=== PATIENT | female | born 1990 | race Caucasian/White ===

== ENCOUNTER 2016-09-10 18:52 | Emergency (ER) | payer OTHER | END 2016-09-10 19:30 | disposition left against medical advice (07) | LOC: ER 18:52 | DX: Z53.9 Procedure and treatment not carried out, unspecified reason (principal); M54.9 Dorsalgia, unspecified; M25.559 Pain in unspecified hip ==

== ENCOUNTER 2017-03-13 22:46 | Emergency (ER) | payer OTHER ==
[2017-03-14 03:02] LABS: AMORPHOUS SEDIMENT,URINE TRACE /HPF; APPEARANCE,URINE CLOUDY; BILIRUBIN,URINE NEGATIVE (NEGATIVE); GLUCOSE, URINE NEGATIVE (NEGATIVE); KETONES,URINE NEGATIVE (NEGATIVE); LEUKOCYTE ESTERASE,URINE LARGE (NEGATIVE); NITRITE,URINE NEGATIVE (NEGATIVE); PROTEIN,URINE 100 mg/dL (NEGATIVE); URINE SPECIFIC GRAVITY 1.023; UROBILINOGEN,URINE NEGATIVE mg/dL (<2.0)
[2017-03-14] MEDS ORDERED: PHENAZOPYRIDINE HCL 200 MG TABLET PO ONE (03:19)
[2017-03-14] MEDS ORDERED: CEPHALEXIN 500 MG CAPSULE PO ONE (03:19)
--- NOTE | 2017-03-14 03:22 | ER Document Report ---
ED GI/ - General Chief Complaint: Pain With Urination Stated Complaint: PELVIC PAIN Time Seen by Provider: 03/14/17 02:43 Mode of Arrival: Ambulatory Information source: Patient TRAVEL OUTSIDE OF THE U.S. IN LAST 30 DAYS: No - HPI Patient complains to provider of: Dysuria, Hematuria Onset: This evening Timing/Duration: Sudden Quality of pain: Achy, Burning Severity at maximum: Moderate Severity in ED: Moderate Pain Level: 3 Location: Suprapubic Associated symptoms: Dysuria, Hematuria, Urinary frequency Exacerbated by: Denies Relieved by: Denies Similar symptoms previously: Yes Recently seen / treated by doctor: No Notes: 03/14/17 03:20 Patient is a 26-year-old female presenting to the emergency room complaining of dysuria and hematuria that started earlier this evening, she also has urinary frequency and urgency, denies a fever, reports a history of a urinary tract infection once in the past with similar but milder symptoms - Related Data Allergies/Adverse Reactions: No Known Allergies Allergy (Unverified 03/14/17 02:13) Past Medical History - General Information source: Patient - Social History Smoking Status: Current Every Day Smoker Family History: Reviewed & Not Pertinent Patient has suicidal ideation: No Patient has homicidal ideation: No Renal/ Medical History: Denies: Hx Peritoneal Dialysis Review of Systems - Review of Systems Constitutional: No symptoms reported EENT: No symptoms reported Cardiovascular: No symptoms reported Respiratory: No symptoms reported Gastrointestinal: No symptoms reported Genitourinary: See HPI Female Genitourinary: No symptoms reported Musculoskeletal: No symptoms reported Skin: No symptoms reported Hematologic/Lymphatic: No symptoms reported Neurological/Psychological: No symptoms reported -: Yes All other systems reviewed and negative Physical Exam - Vital signs Vitals: Temp Pulse Resp BP Pulse Ox 97.7 F 62 16 111/65 99 03/14/17 02:08 03/14/17 02:08 03/14/17 02:08 03/14/17 02:08 03/14/17 02:08 Interpretation: Normal - General General appearance: Appears well, Alert - HEENT Head: Normocephalic, Atraumatic Eyes: Normal Pupils: PERRL - Respiratory Respiratory status: No respiratory distress - Cardiovascular Rhythm: Regular - Abdominal Inspection: Normal Distension: No distension Bowel sounds: Normal Tenderness: Tender - Suprapubic Organomegaly: No organomegaly - Back Back: Normal, Nontender - Extremities General upper extremity: Normal inspection, Nontender, Normal color, Normal ROM , Normal temperature General lower extremity: Normal inspection, Nontender, Normal color, Normal ROM , Normal temperature, Normal weight bearing. No: Cecelia's sign - Neurological Neuro grossly intact: Yes Cognition: Normal Orientation: AAOx4 [place] Coma Scale Eye Opening: Spontaneous Gail Coma Scale Verbal: Oriented [place] Coma Scale Motor: Obeys Commands Gail Coma Scale Total: 15 Speech: Normal Motor strength normal: LUE, RUE, LLE, RLE Sensory: Normal - Psychological Associated symptoms: Normal affect, Normal mood - Skin Skin Temperature: Warm Skin Moisture: Dry Skin Color: Normal Course - Re-evaluation Re-evalutation: 03/14/17 03:20 Patient symptoms are consistent with a urinary tract infection, urinalysis confirms this, she will be started on antibiotics, advised to follow-up with a primary care provider or return if symptoms worsen, patient acknowledges understanding and agreement with this plan - Vital Signs Vital signs: Temp Pulse Resp BP Pulse Ox 97.7 F 62 16 111/65 99 03/14/17 02:08 03/14/17 02:08 03/14/17 02:08 03/14/17 02:08 03/14/17 02:08 - Laboratory Laboratory results interpreted by me: 03/14/17 02:23 Urine Protein 100 H Urine Blood LARGE H Ur Leukocyte Esterase LARGE H Discharge - Discharge Clinical Impression: Urinary tract infection Qualifiers: Urinary tract infection type: site unspecified Hematuria presence: with hematuria Qualified Code(s): N39.0 - Urinary tract infection, site not specified ; R31.9 - Hematuria, unspecified Condition: Stable Disposition: HOME, SELF-CARE Instructions: Urinary Tract Infection ([facility]), Cephalexin ([facility]), Urinary Anesthetic Agent ([facility]) Additional Instructions: Follow up with your primary care provider in one to 2 days. Return to the emergency room immediately if symptoms worsen or any additional concerns. Prescriptions: Cephalexin Monohydrate [Keflex 500 mg Capsule] 500 mg PO BID #20 capsule Phenazopyridine HCl [Pyridium 200 mg Tablet] 200 mg PO TID #15 tablet Forms: Return to Work
[2017-03-14] MEDS ORDERED: ONDANSETRON ODT 4 MG TAB (6 TAB/DSPK) PO PRN (03:43)
[2017-03-14 03:51] VITALS: BP 120/74
== END 2017-03-14 03:50 | disposition home or self-care (01) ==
LOC: ER 22:46
DX: N39.0 Urinary tract infection, site not specified (principal); R31.9 Hematuria, unspecified; R35.0 Frequency of micturition; R39.15 Urgency of urination; F17.200 Nicotine dependence, unspecified, uncomplicated
CPT/HCPCS: 99283; 81025; 81001; J3490

== ENCOUNTER 2017-04-23 23:27 | Emergency (ER) | payer MEDICAID, OTHER ==
[2017-04-24 00:27] VITALS: BP 118/72
--- NOTE | 2017-04-24 02:17 | ER Document Report ---
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 It started 2 days ago. There is no saddle anesthesia or radiculopathy. No fever, no IV drug use. She intermittently has had back pain for many years. Associated Symptoms: None Exacerbated by: Movement Relieved by: Denies Similar symptoms previously: Yes Recently seen / treated by doctor: No - ROS ROS below otherwise negative: Yes Systems Reviewed and Negative: Yes All other systems reviewed and negative - DERM Skin Color: Normal Past Medical History - General Information source: Patient - Social History Smoking Status: Unknown if Ever Smoked Frequency of alcohol use: None Drug Abuse: None Lives with: Family Family History: Reviewed & Not Pertinent Patient has suicidal ideation: No Patient has homicidal ideation: No Renal/ Medical History: Denies: Hx Peritoneal Dialysis Musculoskeltal Medical History: Reports Other - chronic intermittent back pain Surgical Hx: Negative Vertical Provider Document - CONSTITUTIONAL Agree With Documented VS: Yes Exam Limitations: No Limitations General Appearance: Mild Distress Notes: gait stable although right hip is higher than the left - INFECTION CONTROL TRAVEL OUTSIDE OF THE U.S. IN LAST 30 DAYS: No - HEENT HEENT: Normocephalic - NECK Neck: Supple - RESPIRATORY O2 Sat by Pulse Oximetry: 100 - GI/ABDOMEN Gastrointestinal: Abdomen Soft, Abdomen Non-Tender - BACK Back: Normal Inspection. negative: CVA Tenderness-Right, CVA Tenderness-Left Notes: tender lumbar paraspinal muscles - MUSCULOSKELETAL/EXTREMETIES Musculoskeletal/Extremeties: REINALDO YOUNG - NEURO Level of Consciousness: Awake, Alert, Appropriate Motor/Sensory: No Motor Deficit, No Sensory Deficit Deep Tendon Reflexes: 2+ - Bilateral patellar and ankle - DERM Integumentary: Warm, Dry, No Rash Course - Vital Signs Vital signs: Temp Pulse Resp BP Pulse Ox 97.9 F 72 18 118/72 100 04/24/17 00:24 04/24/17 00:24 04/24/17 00:24 04/24/17 00:24 04/24/17 00:24 Discharge - Discharge Clinical Impression: Lumbar back pain Qualifiers: Chronicity: acute Back pain laterality: midline Sciatica presence: without sciatica Qualified Code(s): M54.5 - Low back pain Condition: Good Disposition: HOME, SELF-CARE Instructions: Anti-Inflammatory Medication ([facility]), Low Back Pain ([facility]), Muscle Relaxers ([facility]), Oral Narcotic Medication ([facility]), Warm Packs ([facility]) Additional Instructions: warm compress take the muscle relaxer see the orthopedic doctor if persists see woody ramos NP for further evaluation Please complete the patient satisfaction survey if you get one, and return it.. If you do not receive a survey, then you can go to the [facility] website, [email or web address] and place your comments about your very good care. Thank you very much. It was a pleasure being your medical provider today. Prescriptions: Hydrocodone Bit/Acetaminophen [Hydrocodon-Acetaminophen 5-325] 1 - 2 each PO Q4HP PRN #10 tablet PRN Reason: Cyclobenzaprine HCl [Flexeril 10 Mg Tablet] 10 mg PO TIDP PRN #20 tablet PRN Reason: Forms: Return to Work Referrals: MARCIO MONGE MD [ACTIVE STAFF] - Follow up as needed LESLIE RAMOS NP [ALLIED HEALTH PROFESSIONAL] - Follow up as needed
[2017-04-24] MEDS ORDERED: IBUPROFEN 800 MG TABLET PO ONE (02:35)
[2017-04-24] MEDS ORDERED: HYDROCODONE/ACETAMINOPHEN 5-325 MG 6 TAB/DSPK PO PRN (02:36)
== END 2017-04-24 02:45 | disposition home or self-care (01) ==
LOC: ER 23:27
DX: M54.5 Low back pain (principal)
CPT/HCPCS: 99283; J3490

== ENCOUNTER 2020-02-28 16:05 | Emergency (ER) | payer MEDICAID ==
[2020-02-28 16:58] LABS: ABSOLUTE BASOPHILS # (AUTO) 0.1 10^3/uL (0.0-0.2); ABSOLUTE EOSINOPHILS # (AUTO) 0.2 10^3/uL (0.0-0.6); ABSOLUTE LYMPHOCYTES (AUTO) 2.5 10^3/uL (0.5-4.7); ABSOLUTE MONOCYTES (AUTO) 0.6 10^3/uL (0.1-1.4); ABSOLUTE NEUT (AUTO) 4.5 10^3/uL (1.7-8.2); BASOPHILS % (AUTO) 1.3 % (0-2); LYMPHOCYTES % (AUTO) 32.1 % (13-45); MEAN CORPUSCULAR HEMOGLOBIN 33.4 pg (27.0-33.4); MEAN CORPUSCULAR VOLUME 98 fl (80-97); MONOCYTES % (AUTO) 7.4 % (3-13); PLATELET COUNT 315 10^3/uL (150-450); RED BLOOD COUNT 4.79 10^6/uL (3.72-5.28); RED CELL DISTRIBUTION WIDTH 13.5 % (11.5-14.0); SEGMENTED NEUTROPHILS % (AUTO) 57.2 % (42-78); TOTAL CELLS COUNTED % (AUTO) 100 %; WHITE BLOOD COUNT 7.9 10^3/uL (4.0-10.5)
[2020-02-28 17:05] LABS: ALBUMIN 4.8 g/dL (3.5-5.0); ALCOHOL 122 mg/dL (NONE DETECTED); ALKALINE PHOSPHATASE 55 U/L (38-126); ANION GAP 6 (5-19); ASPARTATE AMINO TRANSFERASE 31 U/L (14-36); BILIRUBIN,TOTAL 0.6 mg/dL (0.2-1.3); BLOOD UREA NITROGEN 12 mg/dL (7-20); CALCIUM 9.6 mg/dL (8.4-10.2); CARBON DIOXIDE 22 mmol/L (22-30); CHLORIDE 110 mmol/L (98-107); GLUCOSE 87 mg/dL (75-110); POTASSIUM 3.6 mmol/L (3.6-5.0); TOTAL PROTEIN 8.4 g/dL (6.3-8.2)
[2020-02-28 17:10] LABS: ACETAMINOPHEN < 10 ug/mL (10-30); SALICYLATE < 1.0 mg/dL (2.0-20.0)
[2020-02-28] MEDS ORDERED: ONDANSETRON HCL INJ/PF 4 MG/2 ML SDV IV ONE (17:12)
[2020-02-28] MEDS ORDERED: NORMAL SALINE 1000 ML 1,000 ML IV ONE (17:12)
--- NOTE | 2020-02-28 17:16 | PSYCHOLOGICAL NOTE ---
Psych Note - Psych Note Date seen by psych provider: 02/28/20 Time seen by psych provider: 16:55 Psych Note: Reason for Consult: Intentional Overdose Patient presented to [facility] ED via EMS after intentional overdosed on Zoloft. She reports that she was diagnosed with cancer and have her liver removed and her 6- month follow-up appointment is coming. Patient is very fearful of this appointment. While struggling to cope with the diagnosis of cancer and her surgery patient admits to pushing friends and family away. Today patient was in a verbal altercation with her significant other who reportedly stated "get the fuck out." At that point patient grabbed the medication and started to take it. She confirms that her significant other took the medications away and called 911. Patient states she is glad that she is here at [facility] and is currently okay. Clinician explained 24-hour petition for evaluation process i.e. cannot leave and cannot have personal belongings. Patient confirms she understands. Patient is semi-alert and orientated to person, place, time and circumstance. Patient is currently very groggy and nauseous. Patient presented after intentional overdose of Zoloft. Patient initially was very despondent and tearful upon arrival. She is now withdrawn and flat. Patient keeps her eyes closed while talking with clinician. Attention and concentration is poor. Insight, judgment, impulse control poor. Impression\\plan: Patient is recommended for 24-hour petition for evaluation; paperwork is signed and placed in patient's chart. Patient presents after intentional overdose of Zoloft. Patient identifies medical concerns in addition to relationship discord as triggers. Patient was originally very distraught upon arrival however is now withdrawn and flat. Patient is currently not medically cleared. Psychiatric evaluation is ongoing. Dr. Kennedy was consulted to care management of this patient; attending physicians in agreement with recommendations and disposition.
[2020-02-28 17:34] LABS: APPEARANCE,URINE CLEAR; BILIRUBIN,URINE NEGATIVE (NEGATIVE); COLOR,URINE STRAW; GLUCOSE, URINE NEGATIVE (NEGATIVE); KETONES,URINE NEGATIVE (NEGATIVE); LEUKOCYTE ESTERASE,URINE NEGATIVE (NEGATIVE); NITRITE,URINE NEGATIVE (NEGATIVE); PROTEIN,URINE NEGATIVE (NEGATIVE); URINE SPECIFIC GRAVITY 1.005; UROBILINOGEN,URINE NEGATIVE mg/dL (<2.0)
[2020-02-28 17:41] LABS: URINE AMPHETAMINES SCREEN NEGATIVE; URINE BARBITURATES SCREEN NEGATIVE; URINE BENZODIAZEPINES SCREEN NEGATIVE; URINE COCAINE SCREEN NEGATIVE; URINE METHADONE SCREEN NEGATIVE; URINE PHENCYCLIDINE SCREEN NEGATIVE
--- NOTE | 2020-02-28 17:43 | RADIOLOGY REPORT (SQ) ---
EXAM DESCRIPTION: CHEST SINGLE VIEW IMAGES COMPLETED DATE/TIME: 02/28/2020 5:30 pm REASON FOR STUDY: overdose COMPARISON: Abdominal series 02/14/2009. EXAM PARAMETERS: NUMBER OF VIEWS: One view. TECHNIQUE: Single frontal radiographic view of the chest acquired. RADIATION DOSE: NA LIMITATIONS: None. FINDINGS: LUNGS AND PLEURA: No consolidation, pleural effusion or pneumothorax. There is a 1.3 cm n odular density at the left lower hemithorax. MEDIASTINUM AND HILAR STRUCTURES: No masses. Contour normal. HEART AND VASCULAR STRUCTURES: Heart normal in size. Normal vasculature. BONES: No acute findings. HARDWARE: None in the chest. OTHER: Surgical clips are noted at the right upper quadrant. IMPRESSION: No consolidation or pleural effusion. 1.3 cm nodular density at the left lower hemithorax, may represent the nipple shadow. Follow-up ches t x-ray with nipple markers can help in further evaluation. TECHNICAL DOCUMENTATION: JOB ID: [id number] 2010 [email or web address]- All Rights Reserved Reading location - IP/workstation name: [email or web address]
[2020-02-28 17:50] LABS: URINE MARIJUANA (THC) SCREEN UNCONFIRMED POSITIVE
[2020-02-28] MEDS ORDERED: ACTIVATED CHARCOAL 25 GM BOTTLE PO STA (17:50)
--- NOTE | 2020-02-28 20:38 | EKG REPORT ---
SEVERITY:- NORMAL ECG - SINUS RHYTHM : Confirmed by: Sher Zarate MD 28-Feb-2020 20:38:11
--- NOTE | 2020-02-28 21:27 | ER Document Report ---
Entered by HARPER PHILLIPS SCRIBE 02/28/20 1802 Acting as scribe for:MARYJANE PAVON MD ED General - General Chief Complaint: Overdose Stated Complaint: OVERDOSE Information source: Patient, Emergency Med Personnel Notes: This 29 year old female patient presents to the emergency department today with suicidal ideation and an intentional overdose. Patient reports a history of being diagnosed with liver cancer x2 years ago and has a reassessment coming up, which she fears may have bad results. Per nurses, patient has been extremely stressed and had a few shots, then took Zoloft, which she has had since before her liver cancer. 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 Denies history of suicidal ideation, hearing voices, or visual hallucinations. TRAVEL OUTSIDE OF THE [place] IN LAST 30 DAYS: No - Related Data Allergies/Adverse Reactions: No Known Allergies Allergy (Verified 02/28/20 16:43) Past Medical History - General Information source: Patient, Emergency Med Personnel - Social History Smoking Status: Current Every Day Smoker Cigarette use (# per day): Yes Drug Abuse: Marijuana Lives with: Family Family History: Reviewed & Not Pertinent Malignancy Medical History: Reports: Hx Liver Cancer Past Surgical History: Reports: Other - 1/2 Liver removed w/ tumors Review of Systems - Review of Systems Constitutional: No symptoms reported EENT: No symptoms reported Cardiovascular: No symptoms reported Respiratory: No symptoms reported Gastrointestinal: See HPI, Nausea. denies: Vomiting Genitourinary: No symptoms reported Female Genitourinary: No symptoms reported Musculoskeletal: No symptoms reported Skin: No symptoms reported Hematologic/Lymphatic: No symptoms reported Neurological/Psychological: See HPI, Suicidal ideation. denies: Hallucinations -: Yes All other systems reviewed and negative Physical Exam - Vital signs Vitals: Resp BP Pulse Ox 15 130/90 H 98 02/28/20 16:25 02/28/20 16:25 02/28/20 16:25 - General General appearance: Appears well, Alert - HEENT Head: Normocephalic, Atraumatic Eyes: Normal Pupils: PERRL - Respiratory Respiratory status: No respiratory distress Chest status: Nontender Breath sounds: Normal Chest palpation: Normal - Cardiovascular Rhythm: Regular Heart sounds: Normal auscultation Murmur: No - Abdominal Inspection: Normal Distension: No distension Bowel sounds: Normal Tenderness: Nontender - Extremities General upper extremity: Normal inspection. No: Edema General lower extremity: Normal inspection. No: Edema - Neurological Neuro grossly intact: Yes Cognition: Normal Orientation: AAOx4 Speech: Normal - Psychological Associated symptoms: Flat affect - Skin Skin Temperature: Warm Skin Moisture: Dry Skin Color: Normal Course - Re-evaluation Re-evalutation: 02/28/20 21:25 Per criteria from poison control patient has been observed in the emergency department the length of time for the Zoloft overdose that she had taken. Patient is hemodynamically stable with not showing any compromise of the overdose that she took of 10 to 12 tablets of Zoloft. The only outstanding test at this point is a repeat Tylenol level. Once that has returned patient is medically cleared and medically stable to be moved to the pod for where other mental health patients are present. Patient remains on involuntary commitment papers at this time. - Vital Signs Vital signs: Temp Pulse Resp BP Pulse Ox 98.3 F 15 119/72 98 02/28/20 16:44 02/28/20 19:30 02/28/20 19:30 02/28/20 19:01 Vital signs are stable there is no tachycardia or irregular rhythms and there is a normal blood pressure pulse pulse oximetry and afebrile. - Laboratory Result Diagrams: 02/28/20 16:32 02/28/20 16:32 Laboratory results interpreted by me: 02/28/20 02/28/20 02/28/20 16:32 16:32 16:32 Hgb 16.0 H MCV 98 H Chloride 110 H Total Protein 8.4 H Urine Blood MODERATE H Salicylates < 1.0 L Acetaminophen < 10 L 02/28/20 21:23 Initial Tylenol level was 0. Repeat Tylenol is pending at this time. - Diagnostic Test Radiology reviewed: Image reviewed, Reports reviewed Radiology results interpreted by me: 02/28/20 21:24 Chest x-ray shows no acute process. Twelve-lead EKG shows no acute changes normal sinus rhythm no ST-T wave elevations. Normal rate. Discharge - Discharge Clinical Impression: Suicidal ideation, Depression Condition: Stable Disposition: PSYCH HOSP/UNIT I personally performed the services described in the documentation, reviewed and edited the documentation which was dictated to the scribe in my presence, and it accurately records my words and actions.
[2020-02-28] MEDS ORDERED: KETOROLAC TROMETHAMINE 60 MG/2 ML SDV IM ONE (23:26)
[2020-02-29] MEDS ORDERED: LORAZEPAM 0.5 MG TABLET PO ONE (03:49)
--- NOTE | 2020-02-29 20:24 | ER Document Report ---
Doctor's Note Notes: 02/29/20 20:15 Patient evaluated today, no new complaints. Awaiting psyc disposition. Chart reviewed.
--- NOTE | 2020-03-01 09:34 | PSYCHOLOGICAL NOTE ---
Psych Note - Psych Note Date seen by psych provider: 02/29/20 Time seen by psych provider: 11:31 - Re evaluation with patient from [id number], again from [id number]. Psych Note: Patient is a 29 year old female in the ED on a 24 Hour Petition for intentional overdose of her prescribed Zoloft. Patient had cancer, half of liver removed, and is due for 6 month check up so feeling scared. She had a fight with her boyfriend. She took the medications and boyfriend called . Today patient reported Im alright. She denied suicidal and homicidal ideation. She admitted the Zoloft was hers. She denied being on any other medication in the past. She stated she is not currently in therapy bit interested, I need help, I have been through a lot, I keep it to myself, eventually I find a human punching bag which isnt fair to them. She denied previous hospitalizations. She stated her cancer doctor is Dr. Le and Primary Care doctor is at [facility] in [place]. She stated she was unsure what her living arrangement will be when discharged. She stated boyfriend kicked her out a couple days ago so her, her 11 and 9 year old children were staying at a friends home. She stated she wasnt sure where her children were and had friends phone number in her phone which she did not bring to ED. From [id number] spoke to patient about her fear of going to 6 month follow up appointment. She stated she has the appointment marked her phone and thinks it is next month. She identified she was worried about her cancer coming back, not able to go away completely. She stated she was doing 3 month follow up s but the last appointment it was changed to 6 months. She noted feeling/noticing signs like losing weight, not feeling good at times and vomiting. She stated she hasnt called her primary care doctor for a check up. She denied she would try to overdose or harm self again. Patient was alert and oriented to self, person, place, time and situation. Mood was depressed with flat affect. She denied suicidal and homicidal ideation. She did not appear to be responding to internal stimuli as evidenced by fair eye contact, answering questions appropriately when addressed and carrying on dialogue conversation. Thought processes were linear and organized. Conversational speech was within normal limits for rate, tone and prosody. Intellectual abilities are estimated to be average. Insight, judgment and impulse control were poor as evidenced by tired/groggy state and inability to organize plan of care. At 1434 and a couple times following tried calling boyfrienadolfo Ta ([phone]). It would go straight to voice mail. Voice mail box not set up. Tried calling patients phone number listed, it rang and no answer. Clinical Presentation: Intentional Overdose of prescribed Zoloft Impression/Plan: Recommendation for patient to continue to get rest/sleep overnight voluntarily. Difficulty getting in touch with boyfriend to obtain other phone numbers patient does not know without having her cell phone. Will begin to coordinate with her boyfriend first thing in the morning for discharge. Consulted with Dr. Kennedy regarding the management and care of patient. ED Physician in agreement with recommendations.
--- NOTE | 2020-03-01 12:12 | ER Document Report ---
Doctor's Note Notes: 03/01/20 12:14 PHYSICAL EXAMINATION: GENERAL: Appears well, healthy, well-nourished, no acute distress. LUNGS: Equal breath sounds bilaterally and clear to auscultation. No wheezes rales or rhonchi. CARDIOVASCULAR: S1-S2, regular rate, regular rhythm. Radial pulses 2+, normal. ABDOMEN: Normoactive bowel sounds. Soft, nontender, no guarding, no rebound tenderness, and no masses palpated. PSYCH: Normal mood, normal affect. Patient denies any suicidal or homicidal ideation. Mental health has evaluated the patient and has cleared her for discharge. Patient is to follow-up on an outpatient basis. She is supposed to follow-up with [facility]. Follow-up precautions were given. Verbal discharge instructions were given to the patient. They verbalized understanding. They are stable for discharge.
[2020-03-01 12:23] VITALS: BP 117/74
--- NOTE | 2020-03-01 19:53 | PSYCHOLOGICAL NOTE ---
Psych Note - Psych Note Date seen by psych provider: 03/01/20 Time seen by psych provider: 11:13 - Re evaluation with patient from [id number]. Boyfriend at bedside. Psych Note: Patient is a 29 year old female in the ED and was on a 24 Hour Petition for intentional overdose of her prescribed Zoloft on 02/28/2020. The 24 Hour Petition for Evaluation yesterday (02/29/2020). Was trying to discharge yesterday but unable to get in touch with patient's boyfriend for plan of care and patient did not have any other phone numbers. She was held overnight voluntarily with plan to discharge this morning. Today patient continued to deny suicidal and homicidal ideation. Boyfriend Keyon was at bedside. They stated they still needed to talk about their relationship and how they are moving forward. Boyfriend seemed supportive in that he was asking appropriate questions about care and treatment. patient stated if she wasn't going to stay at boyfriend's she would stay at the friend's house she was the 2 days before she came to the ED. Boyfriend noted the children were with him and currently he has a crap game box person with them. Informed patient this clinician just wanted to get outpatient services set up and patient commented "I want therapy set up before I leave here, I just never did it on my own, I was worried what people may think." Mood was improved and she smiled at times. Patient was alert and oriented to self, person, place, time and situation. Mood was improved and more euthymic with congruent affect. She denied suicidal and homicidal ideation. She did not appear to be responding to internal stimuli as evidenced by fair eye contact, answering questions appropriately when addressed and carrying on dialogue conversation. Thought processes were linear and organized. Conversational speech was within normal limits for rate, tone and prosody. Intellectual abilities are estimated to be average. Insight, judgment and impulse control were fair as evidenced by wanting to make sure therapy appointment was scheduled before she left the Emergency Department. At 1121 called [facility] [place], spoke to Sarai, and provided information for new patient referral. They are to call patient with appointments. Clinical Presentation: Intentional Overdose of prescribed Zoloft Concerns about 6 month follow up appointment for cancer/she's worries it's back Relationship Distress with Intimate Partner Impression/Plan: Patient is cleared from acute psychiatric services. Recommendation to move forward with plan to discharge. Patient continued to deny suicidal ideation and was adamant she have a therapy appointment scheduled before she left the hospital, boyfriend present and supportive, patient and boyfriend to discuss their relationship, patient will stay at boyfriend's or friend's house. Patient was linked to [facility] [place] as new patient for therapy and medication management. Provided patient with the outpatient mental health resource sheet which highlighted both mobile crisis numbers for crisis/talk therapy/linkage to other services and supports, highlighted [facility] [place] who would be calling her with appointments, and also documented walk in times for both [facility] and [facility] as alternative outpatient agency options. Consulted with Dr. Kennedy regarding the management and care of patient. ED Physician in agreement with recommendations.
== END 2020-03-01 12:44 | disposition home or self-care (01) ==
LOC: ER 16:05
DX: T43.222A Poisoning by selective serotonin reuptake inhibitors, intentional self-harm, initial encounter (principal); R11.0 Nausea; F17.210 Nicotine dependence, cigarettes, uncomplicated; F12.10 Cannabis abuse, uncomplicated; F32.9 Major depressive disorder, single episode, unspecified; Z63.0 Problems in relationship with spouse or partner; Z85.05 Personal history of malignant neoplasm of liver; Z79.899 Other long term (current) drug therapy
CPT/HCPCS: 93005; 99285; 96372; 96361; 96374; 36415; 80307 ×4; 84703; 85025; 80053; 81001; 71045; 93010; J1885; J2405; J7030; J3490